=== PATIENT | female | born 1960 ===

== ENCOUNTER 2017-10-04 18:40 | Observation (INO) | payer MEDICAID ==
[2017-10-04 18:48] VITALS: BMI 31.7
[2017-10-04] MEDS ORDERED: Sodium Chloride 0.9% 1,000 ML IV STA (18:59)
--- NOTE | 2017-10-04 19:02 | ED PDOC ---
Arrival/HPI - General Chief Complaint: GI Problem Time Seen by Provider: 10/04/17 18:50 Historian: Patient, Family - History of Present Illness Narrative History of Present Illness (Text): 10/04/17 18:55 56 year old female, whose PMH includes kidney stones, who presents to the emergency department, accompanied by family complaining of right flank pain s/p surgery. patient's family states today she went in for kidney stone removal today. Patient is complaining of food intolerance and vomiting. Family member reports s yncopal episode x 5 min today. no other complaints were made. 10/04/17 22:33 Time/Duration: Prior to Arrival Symptom Onset: Sudden Symptom Course: Unchanged Activities at Onset: Rest Context: Home Past Medical History - Provider Review Nursing Documentation Reviewed: Yes - Infectious Disease Hx of Infectious Diseases: None - Tetanus Immunization Tetanus Immunization: Up to Date - Cardiac Hx Cardiac Disorders: No - Pulmonary Hx Respiratory Disorders: No - Neurological Hx Neurological Disorder: No - HEENT Hx HEENT Disorder: No - Renal Hx Kidney Stones: Yes - Endocrine/Metabolic Hx Endocrine Disorders: No - Hematological/Oncological Hx Blood Disorders: No - Integumentary Hx Dermatological Disorder: No - Musculoskeletal/Rheumatological Hx Musculoskeletal Disorders: No - Gastrointestinal Hx Gastrointestinal Disorders: Yes Hx Gastritis: Yes Hx Pancreatitis: Yes - Genitourinary/Gynecological Hx Genitourinary Disorders: No - Psychiatric Hx Psychophysiologic Disorder: No Hx Substance Use: No - Surgical History Hx Appendectomy: Yes Hx Section: Yes Hx Cholecystectomy: Yes Other/Comment: kindey stones - Anesthesia Hx Anesthesia: Yes Hx Anesthesia Reactions: No Hx Malignant Hyperthermia: No - Suicidal Assessment Feels Threatened In Home Enviroment: No Family/Social History - Physician Review Nursing Documentation Reviewed: Yes Family/Social History: Unknown Family HX Smoking Status: Never Smoked Hx Alcohol Use: No Hx Substance Use: No Allergies/Home Meds Allergies/Adverse Reactions: Allergies No Known Allergies Allergy (Verified 04/28/16 08:12) Home Medications: Home Meds Medication Instructions Recorded Confirmed Aspirin [Adult Low Dose Aspirin EC] 81 mg PO DAILY 10/04/17 10/04/17 Calcium Carbonate/Vitamin D3 1 each PO DAILY 10/04/17 10/04/17 [Caltrate 600 + D Tablet] Esomeprazole Magnesium [Nexium 20 mg PO DAILY 10/04/17 10/04/17 24Hr] Oxybutynin Chloride [Ditropan Xl] 5 mg PO DAILY 10/04/17 10/04/17 Review of Systems - Review of Systems Constitutional: absent: Fevers Respiratory: absent: SOB Cardiovascular: absent: Chest Pain Gastrointestinal: Nausea, Vomiting, Food Intolerance Musculoskeletal: Other (right flank pain s/p surgery ) Neurological: absent: Headache Endocrine: absent: Diaphoresis Physical Exam Vital Signs Reviewed: Yes Vital Signs Temp Pulse Resp BP Pulse Ox 10/04/17 22:22 65 18 168/85 H 97 10/04/17 18:55 98.6 F 66 19 188/92 H 99 Temperature: Afebrile Blood Pressure: Hypertensive Pulse: Regular Respiratory Rate: Normal Appearance: Positive for: Well-Appearing, Non-Toxic, Comfortable Pain Distress: None Mental Status: Positive for: Alert and Oriented X 3 - Systems Exam Head: Present: Atraumatic, Normocephalic Pupils: Present: PERRL Extroacular Muscles: Present: EOMI Conjunctiva: Present: Normal Respiratory/Chest: Present: Clear to Auscultation, Good Air Exchange. No: Respiratory Distress, Accessory Muscle Use, Wheezes, Decreased Breath Sounds, Rales, Rhonchi Cardiovascular: Present: Regular Rate and Rhythm, Normal S1, S2. No: Murmurs Abdomen: Present: Tenderness (right sided radiates to back ), Normal Bowel Sounds. No: Distention, Peritoneal Signs, Rebound, Guarding Neurological: Present: GCS=15, CN II-XII Intact, Speech Normal Skin: Present: Warm, Dry, Normal Color. No: Rashes Psychiatric: Present: Alert, Oriented x 3, Normal Insight, Normal Concentration Medical Decision Making ED Course and Treatment: 10/04/17 Impression: 56 year old female with right sided flank tenderness complaining of right sided flank pain s/p surgery today. also syncope susepct vasovagl Plan: -- CT abdomen and pelvis -- CT head -- EKG -- Chest X-ray -- Labs -- Zofran and Sodium Chloride -- Urinalysis -- Reassess and disposition Progress Notes: 10/04/17 21:15 CT abdomen and pelvis: FINDINGS: Lung bases: Bilateral lung base dependent atelectasis. ABDOMEN: Liver: 15 mm cyst in left lobe of liver. Gallbladder and bile ducts: Unremarkable. No calcified stones. No ductal dilation. Pancreas: Unremarkable. No ductal dilation. Spleen: Unremarkable. No splenomegaly. Adrenals: Unremarkable. No mass. Kidneys and ureters: Mild right hydronephrosis and hydroureter with stone seen at distal right ureter at the right UV junction measuring 3 mm. 2 mm nonobstructing stones are seen in distal right ureter on axial image 75. Right perinephric stranding of fat. No perinephric fluid. 3 mm nonobstructing stones in right kidney. Stomach and bowel: Unremarkable. No obstruction. No mucosal thickening. PELVIS: Appendix: No findings to suggest acute appendicitis. Bladder: Clinical cystectomy Reproductive: Unremarkable as visualized. ABDOMEN and PELVIS: Intraperitoneal space: Unremarkable. No free air. No significant fluid collection. Bones/joints: No acute fracture. No dislocation. Soft tissues: Unremarkable. Vasculature: Unremarkable. No abdominal aortic aneurysm. Lymph nodes: Unremarkable. No enlarged lymph nodes. IMPRESSION: Mild right hydronephrosis and hydroureter with stone seen at distal right ureter at the right UV junction measuring 3 mm. 2 mm nonobstructing stones are seen in distal right ureter on axial image 75. Right perinephric stranding of fat. No perinephric fluid. 3 mm nonobstructing stones in right kidney. 10/04/17 21:20 CT head: FINDINGS: Brain: No evidence of acute intracranial bleed. No mass lesion or mass effect. Lauren/white matter differentiation is unremarkable. Cerebellum is unremarkable. Cisterns are unremarkable. Brainstem is unremarkable. No suprasellar mass. Ventricles: Unremarkable. No ventriculomegaly. Bones/joints: Unremarkable. No acute fracture. Soft tissues: Unremarkable. Sinuses: Unremarkable as visualized. No acute sinusitis. Mastoid air cells: Unremarkable as visualized. No mastoid effusion. IMPRESSION: No evidence of pathology. 10/04/17 21:55 EKG: Ordered, reviewed, and independently interpreted the EKG. Rate : 69 BPM Rhythm : NSR Interpretation : No ST-segment elevations or depressions, no T-wave inversions, normal intervals. 10/05/17 11:13 multiple rounds of anitemetic. persistent nausea vomiting. will obs. accepted by dr west - Lab Interpretations Lab Results: 10/04/17 19:09 10/04/17 19:09 Lab Results 10/04/17 20:53: Urine Color Light yellow, Urine Appearance Clear, Urine pH 7.0, Ur Specific [place] 1.010, Urine Protein Negative, Urine Glucose (UA) Negative, Urine Ketones Trace H, Urine Blood Large H, Urine Nitrate Negative, Urine Bilirubin Negative, Urine Urobilinogen 0.2, Ur Leukocyte Esterase Negative, Urine RBC 0 - 2, Urine WBC Negative, Ur Epithelial Cells 0 - 2 10/04/17 19:09: Sodium 140, Potassium 3.6, Chloride 103, Carbon Dioxide 23, Anion Gap 18, BUN 13, Creatinine 0.7, Est GFR ( Amer) > 60, Est GFR (Non- Af Amer) > 60, Random Glucose 147 H, Calcium 9.4, Magnesium 1.8, Total Bilirubin 0.4, AST 33, ALT 36, Alkaline Phosphatase 93, Lactate Dehydrogenase 616, Total Creatine Kinase 168, Troponin I < 0.01, Total Protein 8.0, Albumin 4.5, Globulin 3.5, Albumin/Globulin Ratio 1.3, Lipase 135 10/04/17 19:09: PT 11.1, INR 0.97, APTT 31.1 10/04/17 19:09: WBC 13.7 H D, RBC 4.53, Hgb 13.0, Hct 38.8, MCV 85.7, MCH 28.7, MCHC 33.5, RDW 13.5, Plt Count 285, MPV 10.1, Gran % 85.6 H, Lymph % (Auto) 9.0 L, Woods % (Auto) 5.0, Eos % (Auto) 0.3 L, Baso % (Auto) 0.1, Gran # 11.74 H, Lymph # (Auto) 1.2, Woods # (Auto) 0.7 H, Eos # (Auto) 0.0, Baso # (Auto) 0.01 I have reviewed the lab results: Yes - RAD Interpretation Radiology Orders: 10/04/17 18:58 CHEST PORTABLE [RAD] Stat 10/04/17 18:59 ABD & PELVIS W/O PO OR IV CONT [CT] Stat HEAD W/O CONTRAST [CT] Stat [employer]: Radiologist - EKG Interpretation Interpreted by ED Physician: Yes Type: 12 lead EKG - Medication Orders Current Medication Orders: Heparin Sodium (Porcine) (Heparin) 5,000 units SC Q12 ELISE PRN Reason: Protocol Last Admin: 10/05/17 09:33 Dose: 5,000 units Subcutaneous Administrations Document 10/05/17 09:33 BIR (Rec: 10/05/17 09:33 [facility] [id number]) Charges for Administration # of Subcutaneous Administrations 1 Sodium Chloride (Sodium Chloride 0.9%) 1,000 mls @ 125 mls/hr IV .Q8H [facility] Last Admin: 10/05/17 09:40 Dose: 125 mls/hr eMAR Start Stop Document 10/05/17 09:40 [facility] (Rec: 10/05/17 09:40 [id number] Intravenous Solution Start Date 10/05/17 Start Time 09:40 Morphine Sulfate (Morphine) 2 mg IVP Q4 PRN PRN Reason: Pain, severe (8-10) Ondansetron HCl (Zofran Inj) 4 mg IVP Q4H PRN PRN Reason: Nausea/Vomiting Pantoprazole Sodium (Protonix Inj) 40 mg IVP DAILY [facility] Last Admin: 10/05/17 09:34 Dose: 40 mg IVP Administration Document 10/05/17 09:34 [facility] (Rec: 10/05/17 09:34 [id number] Charges for Administration # of IVP Administrations 1 Tamsulosin HCl (Flomax) 0.4 mg PO DAILY [facility] Last Admin: 10/05/17 09:32 Dose: 0.4 mg Discontinued Medications Acetaminophen (Tylenol 325mg Tab) 975 mg PO STAT STA Stop: 10/04/17 19:07 Last Admin: 10/04/17 19:12 Dose: 975 mg MAR Pain/Vitals Document 10/04/17 19:12 OCS (Rec: 10/04/17 19:13 OCS [id number]) Pain Reassessment Is This A Pain ReAssessment? No Sleep Is patient sleeping during reassessment? No Presence of Pain Presence of Pain Yes Pain Scale Used Pain Scale Used Numeric Location Pain Location Body Site Abdomen Pain Behavior Moaning Irritability Facial Grimacing Aggravating Factors ADL's Acetaminophen (Tylenol 325mg Tab) 650 mg PO STAT STA Stop: 10/04/17 23:56 Sodium Chloride (Sodium Chloride 0.9%) 1,000 mls @ 999 mls/hr IV .Q1H1M STA Stop: 10/04/17 19:59 Last Admin: 10/04/17 19:12 Dose: 999 mls/hr eMAR Start Stop Document 10/04/17 19:12 OCS (Rec: 10/04/17 19:12 OCS [id number]) Intravenous Solution Start Date 10/04/17 Start Time 19:12 End Date 10/04/17 End time 20:13 Total Infusion Time 61 Sodium Chloride (Sodium Chloride 0.9%) 1,000 mls @ 150 mls/hr IV .Q6H40M ELISE Last Admin: 10/04/17 22:09 Dose: 150 mls/hr eMAR Start Stop Document 10/04/17 22:09 OCS (Rec: 10/04/17 22:10 OCS [id number]) Intravenous Solution Start Date 10/04/17 Start Time 22:09 Ketorolac Tromethamine (Toradol) 30 mg IVP STAT STA Stop: 10/04/17 21:13 Last Admin: 10/04/17 22:08 Dose: 30 mg MAR Pain Assessment Document 10/04/17 22:08 OCS (Rec: 10/04/17 22:09 [id number] Pain Reassessment Is this a pain reassessment? No Sleep Is patient sleeping during reassessment? No Presence of Pain Presence of Pain Yes Pain Scale Used Pain Scale Used Numeric Location Pain Location Body Site Abdomen Description Description Constant Intensity of Pain at present 9 Pain Behavior Irritability IVP Administration Document 10/04/17 22:08 OCS (Rec: 10/04/17 22:09 [place] [id number]) Charges for Administration # of IVP Administrations 1 Ondansetron HCl (Zofran Inj) 4 mg IVP STAT STA Stop: 10/04/17 19:00 Last Admin: 10/04/17 19:13 Dose: 4 mg IVP Administration Document 10/04/17 19:13 OCS (Rec: 10/04/17 19:13 OCS [id number]) Charges for Administration # of IVP Administrations 1 Ondansetron HCl (Zofran Inj) 4 mg IVP STAT STA Stop: 10/04/17 21:13 Last Admin: 10/04/17 22:09 Dose: 4 mg IVP Administration Document 10/04/17 22:09 OCS (Rec: 10/04/17 22:09 [id number] Charges for Administration # of IVP Administrations 1 Pneumococcal Polyvalent Vaccine (Pneumovax 23 Vaccine) 0.5 ml IM .ONCE ONE Stop: 10/05/17 01:41 Tamsulosin HCl (Flomax) 0.4 mg PO STAT STA Stop: 10/04/17 21:35 Last Admin: 10/04/17 22:08 Dose: 0.4 mg - Scribe Statement The provider has reviewed the documentation as recorded by the Kenny Santiago Provider Scribe Attestation: All medical record entries made by the Michaeliblisa were at my direction and personally dictated by me. I have reviewed the chart and agree that the record accurately reflects my personal performance of the history, physical exam, medical decision making, and the department course for this patient. I have also personally directed, reviewed, and agree with the discharge instructions and disposition. Disposition/Present on Arrival - Present on Arrival Any Indicators Present on Arrival: No History of DVT/PE: No History of Uncontrolled Diabetes: No Urinary Catheter: No History of Decub. Ulcer: No History Surgical Site Infection Following: None - Disposition Have Diagnosis and Disposition been Completed?: Yes Diagnosis: Syncope, Kidney stone Disposition: HOSPITALIZED Disposition Time: 06:00 Condition: STABLE
[2017-10-04 19:39] LABS: BASO # 0.01 K/mm3 (0.0-2.0); BASO % 0.1 % (0.0-3.0); EOS % 0.3 % (1.5-5.0); GRAN # 11.74 (1.4-6.5); GRAN % 85.6 % (50.0-68.0); LYMPH # 1.2 (1.2-3.4); MEAN CELL VOLUME 85.7 fl (80.0-105.0); MEAN CORPUSCULAR HEMOGLOBIN 28.7 pg (25.0-35.0); MEAN CORPUSCULAR HGB CONC 33.5 g/dl (31.0-37.0); MEAN PLATELET VOLUME 10.1 fl (7.0-11.0); MONO # 0.7 (0.1-0.6); RBC 4.53 10^6/uL (3.5-6.1); RED CELL DISTRIBUTION WIDTH 13.5 % (11.5-14.5); WHITE BLOOD COUNT 13.7 10^3/ul (4.5-11.0)
[2017-10-04 19:45] LABS: INR 0.97 (0.93-1.08); PARTIAL THROMBOPLASTIN TIME 31.1 Seconds (25.1-36.5); PROTHROMBIN TIME 11.1 SECONDS (9.4-12.5)
[2017-10-04 19:51] LABS: ALB/GLOB RATIO 1.3 (1.1-1.8); ALBUMIN 4.5 g/dL (3.0-4.8); ALT/SGPT 36 U/L (7-56); AST/SGOT 33 U/L (14-36); BLOOD UREA NITROGEN 13 mg/dL (7-21); CALCIUM 9.4 mg/dL (8.4-10.5); GFR AFRICAN-AMERICAN > 60; GFR NON-AFRICAN AMERICAN > 60; LIPASE 135 U/L (23-300)
[2017-10-04 20:03] LABS: TROPONIN I < 0.01 ng/mL
[2017-10-04 21:00] LABS: URINE BILIRUBIN NEGATIVE (NEGATIVE); URINE BLOOD LARGE (NEGATIVE); URINE GLUCOSE (UA) NEGATIVE (NEGATIVE); URINE LEUKOCYTE ESTERASE NEGATIVE Leu/uL (NEGATIVE); URINE PROTEIN NEGATIVE mg/dL (<30 mg/dL); URINE UROBILINOGEN 0.2 E.U./dL (<1 E.U./dL)
[2017-10-04 21:02] LABS: URINE APPEARANCE CLEAR (CLEAR); URINE COLOR LIGHT YELLOW (YELLOW)
[2017-10-04 21:08] LABS: URINE EPITHELIAL CELLS 0 - 2 /hpf (0-5); URINE RBC 0 - 2 /hpf (0-2); URINE WBC NEGATIVE /hpf (0-6)
[2017-10-04] MEDS ORDERED: Morphine 2 mg/ml ISec IVP PRN (21:35)
[2017-10-04] MEDS ORDERED: Sodium Chloride 0.9% 1,000 ML IV SCH ×2 (21:45→23:55)
--- NOTE | 2017-10-04 21:57 | CP.PCM.HP ---
<Kwan Mahan - Last Filed: 10/05/17 08:57> History of Present Illness - History of Present Illness History of Present Illness: 56 year old female with a past medical history of nephrolithiasis s/p removal of stone who comes in today after having a witness syncopal episode after returning from her procedure. The patient was at home when she began to feel nauseous and had one episode of emesis. The patient states her syncopal episode was witnessed by her father at her home. She denies tongue biting, aura , fecal incontinenece or urinary as well. The patient reports this being her first syncopal episode. The patient denies any chest pain, palpitations, fevers , chills, changes in vision, headache, diarrhea, abdominal pain, lower leg edema or any other complaints. Past medical history: nephrolithiasis Past surgical history: Cholecystectomy, Appendectomy, Hernia repair, Family history: CAD both parents, ESRD in mother Social history: Denies tobacco, alcohol or illicit drug use. PMD: Dr. Wu Present on Admission - Present on Admission Any Indicators Present on Admission: No Review of Systems - Constitutional Constitutional: absent: Daytime Sleepiness, Headache, Night Sweats, Weakness - EENT Eyes: absent: Blurred Vision, Discharge, Loss of Peripheral Vision, Requires Corrective Lenses, Other Visual Disturbances Ears: absent: Ear Discharge, Disequilibrium, Dizziness Nose/Mouth/Throat: absent: Nasal Congestion, Nose Pain, Bleeding Gums, Mouth Pain, Facial Pain - Cardiovascular Cardiovascular: Syncope. absent: Chest Pain, Claudication, Irregular Heart Rhythm, Pain Radiating to Arm/Neck/Jaw, Leg Edema, Leg Ulcers, Orthopnea, Palpitations, Pedal Edema, Radiating Pain, Slow Heart Rate - Respiratory Respiratory: absent: Cough, Dyspnea, Hemoptysis, Snoring, Stridor, Pain on Inspiration, Change in Mucous Color - Gastrointestinal Gastrointestinal: Nausea, Vomiting. absent: Dyspepsia, Fecal Incontinence, Loose Stools - Genitourinary Genitourinary: absent: Change in Urinary Stream, Pyuria, Nocturia, Urinary Incontinence, Urinary Hesitance, Urinary Urgency - Musculoskeletal Musculoskeletal: absent: Arthralgias, Atrophy, Joint Swelling, Limited Range of Motion, Myalgias, Neck Pain, Stiffness Additional comments: CVA tenderness right side. - Integumentary Integumentary: absent: Bleeding Lesions, Changing Lesions, Lesions, New Lesions , Pruritus, Rash, Unusual Bruising - Neurological Neurological: absent: Abnormal Hearing, Behavioral Changes, Dizziness, Lack of Coordination - Endocrine Endocrine: absent: Polydipsia, Polyphagia, Polyuria - Hematologic/Lymphatic Hematologic: absent: Easy Bleeding, Easy Bruising Past Patient History - Infectious Disease Hx of Infectious Diseases: None - Tetanus Immunizations Tetanus Immunization: Up to Date - Past Medical History & Family History Past Medical History?: No - Past Social History Smoking Status: Never Smoked - CARDIAC Hx Cardiac Disorders: No - PULMONARY Hx Respiratory Disorders: No - NEUROLOGICAL Hx Neurological Disorder: No - HEENT Hx HEENT Problems: No - RENAL Hx Kidney Stones: Yes - ENDOCRINE/METABOLIC Hx Endocrine Disorders: No - HEMATOLOGICAL/ONCOLOGICAL Hx Blood Disorders: No - INTEGUMENTARY Hx Dermatological Problems: No - MUSCULOSKELETAL/RHEUMATOLOGICAL Hx Musculoskeletal Disorders: No - GASTROINTESTINAL Hx Gastrointestinal Disorders: Yes Hx Gastritis: Yes Hx Pancreatitis: Yes - GENITOURINARY/GYNECOLOGICAL Hx Genitourinary Disorders: No - PSYCHIATRIC Hx Psychophysiologic Disorder: No Hx Substance Use: No - SURGICAL HISTORY Hx Appendectomy: Yes Hx Section: Yes Hx Cholecystectomy: Yes Other/Comment: kindey stones - ANESTHESIA Hx Anesthesia: Yes Hx Anesthesia Reactions: No Hx Malignant Hyperthermia: No Meds Allergies/Adverse Reactions: Allergies Allergy/AdvReac Type Severity Reaction Status Date / Time No Known Allergies Allergy Verified 04/28/16 08:12 Physical Exam - Head Exam Head Exam: ATRAUMATIC, NORMAL INSPECTION, NORMOCEPHALIC - Eye Exam Eye Exam: Normal appearance, PERRL Pupil Exam: NORMAL ACCOMODATION, PERRL - ENT Exam ENT Exam: Mucous Membranes Moist, Normal Exam - Neck Exam Neck exam: Positive for: Normal Inspection - Respiratory Exam Respiratory Exam: Clear to Auscultation Bilateral, NORMAL BREATHING PATTERN. absent: Chest Wall Tenderness, Prolonged Expiratory Phase, Respiratory Distress - Cardiovascular Exam Cardiovascular Exam: REGULAR RHYTHM, RRR, +S1, +S2. absent: Rubs - GI/Abdominal Exam GI & Abdominal Exam: Normal Bowel Sounds, Soft. absent: Hypoactive Bowel Sounds , Organomegaly, Tenderness - Extremities Exam Extremities exam: Positive for: normal inspection. Negative for: full ROM, joint swelling, pedal edema - Back Exam Back exam: CVA tenderness (R). absent: FULL ROM, paraspinal tenderness, rash noted - Neurological Exam Neurological exam: Alert, CN II-XII Intact, Oriented x3 - Psychiatric Exam Psychiatric exam: Normal Affect, Normal Mood - Skin Skin Exam: Dry, Intact Results - Vital Signs Recent Vital Signs: Last Vital Signs Temp 98.6 F 10/04/17 18:55 Pulse 66 10/04/17 18:55 Resp 19 10/04/17 18:55 BP 188/92 H 10/04/17 18:55 Pulse Ox 99 10/04/17 18:55 - Labs Result Diagrams: 10/05/17 05:45 10/05/17 05:45 Assessment & Plan - Assessment and Plan (Free Text) Assessment: 56 year old female with a past medical history of nephrolithiasis s/p removal of stone being admitted for syncopal episode. Plan: 1. Syncopal episode. -Witnessed by father. Patient denies any incontinent episodes. -? Cardiology consult. -Last echo 01/21/15: Mild Mitral valve prolpase 2. Removal of stone in right kidney -Patient remains symptomatic with nausea and vomiting -Flomax .4mg Started. -Morphine for pain management -Zofran -Urology consulted. Help appreciated PPX -Heparin -Protonix <Kaitlynn KING,Terrence - Last Filed: 10/05/17 13:56> Results - Vital Signs Recent Vital Signs: Last Vital Signs Temp 98.3 F 10/05/17 06:00 Pulse 74 10/05/17 06:00 Resp 18 10/05/17 06:00 BP 127/67 10/05/17 06:00 Pulse Ox 96 10/05/17 06:00 - Labs Result Diagrams: 10/05/17 05:45 10/05/17 05:45 Labs: Laboratory Results - last 24 hr 10/05/17 10/05/17 05:45 05:45 WBC 13.5 H RBC 4.24 Hgb 11.9 L Hct 36.2 MCV 85.4 MCH 28.1 MCHC 32.9 RDW 13.6 Plt Count 292 MPV 10.2 Gran % 78.9 H Lymph % (Auto) 14.5 L [place]cc[place] % (Auto) 6.6 H Eos % (Auto) 0.0 L Baso % (Auto) 0.0 Gran # 10.63 H Lymph # (Auto) 2.0 [place] # (Auto) 0.9 H Eos # (Auto) 0.0 Baso # (Auto) 0.00 Sodium 143 Potassium 3.6 Chloride 108 H Carbon Dioxide 24 Anion Gap 15 BUN 7 Creatinine 0.6 L Est GFR ( Amer) > 60 Est GFR (Non-Af Amer) > 60 Random Glucose 126 H Calcium 8.6 Total Bilirubin 0.6 AST 27 ALT 35 Alkaline Phosphatase 79 Total Protein 6.9 Albumin 3.8 Globulin 3.1 Albumin/Globulin Ratio 1.2 Attending/Attestation - Attestation I have personally seen and examined this patient.: Yes I have fully participated in the care of the patient.: Yes I have reviewed all pertinent clinical information: Yes Notes (Text): -I agree with the above H&P completed by the resident physician with the following additions and/or changes: -The patient is a 56 year old woman with a history of recurrent nephrolithiasis , who just underwent lithotripsy earlier today at [facility], for a kidney stone. Soon afterwards, she had a witnessed syncopal episode. CT-A/P done in the ED shows persistence of 3mm kidney stone with associated hydro and stranding. We will consult urology. Also, orthostatics, a 2D-echo and serial trops/EKGs have been ordered. She will be placed on Flomax and aggressive IVF s.
[2017-10-05] MEDS ORDERED: Pneumococcal 23-Valent Vaccine IM ONE (01:40)
[2017-10-05 06:36] LABS: GRAN # 10.63 (1.4-6.5); GRAN % 78.9 % (50.0-68.0); HEMOGLOBIN 11.9 g/dL (12.0-16.0); LYMPH % 14.5 % (22.0-35.0); MEAN CELL VOLUME 85.4 fl (80.0-105.0); MEAN CORPUSCULAR HEMOGLOBIN 28.1 pg (25.0-35.0); MEAN CORPUSCULAR HGB CONC 32.9 g/dl (31.0-37.0); MEAN PLATELET VOLUME 10.2 fl (7.0-11.0); MONO # 0.9 (0.1-0.6); MONO % 6.6 % (1.0-6.0); RBC 4.24 10^6/uL (3.5-6.1); RED CELL DISTRIBUTION WIDTH 13.6 % (11.5-14.5); WHITE BLOOD COUNT 13.5 10^3/ul (4.5-11.0)
[2017-10-05 07:24] LABS: ALB/GLOB RATIO 1.2 (1.1-1.8); ALBUMIN 3.8 g/dL (3.0-4.8); ALT/SGPT 35 U/L (7-56); AST/SGOT 27 U/L (14-36); BLOOD UREA NITROGEN 7 mg/dL (7-21); CALCIUM 8.6 mg/dL (8.4-10.5); GFR AFRICAN-AMERICAN > 60; GFR NON-AFRICAN AMERICAN > 60
--- NOTE | 2017-10-05 07:27 | CP.PCM.PN ---
<David Hendrix - Last Filed: 10/05/17 16:36> Subjective - Date & Time of Evaluation Date of Evaluation: 10/05/17 Time of Evaluation: 07:27 - Subjective Subjective: Medicine Progress note Patient seen and examined at bedside this AM. s/p procedure of nephrolithiasis from Urology yesterday at [facility] [place]. Patients Right flank pain is much more improved than yesterday. Current has an appetite. No further syncopal epsiodes since admission. AAOx3, Denies hematuria, dizziness, loss of bowel or bladder function , fevers, chills, chest pain, shortness of breath, nausea vomiting, diarrhea Objective - Vital Signs/Intake and Output Vital Signs (last 24 hours): Temp Pulse Resp BP Pulse Ox 98.6 F 61 17 168/85 H 97 10/04/17 23:50 10/05/17 02:00 10/04/17 23:50 10/04/17 23:50 10/04/17 23:17 Intake and Output: 10/05/17 10/05/17 06:59 18:59 Intake Total 0 Balance 0 - Medications Medications: Current Medications Heparin Sodium (Porcine) (Heparin) 5,000 units SC Q12 ELISE PRN Reason: Protocol Last Admin: 10/04/17 22:09 Dose: 5,000 units Sodium Chloride (Sodium Chloride 0.9%) 1,000 mls @ 125 mls/hr IV .Q8H [facility] Morphine Sulfate (Morphine) 2 mg IVP Q4 PRN PRN Reason: Pain, severe (8-10) Ondansetron HCl (Zofran Inj) 4 mg IVP Q4H PRN PRN Reason: Nausea/Vomiting Pantoprazole Sodium (Protonix Inj) 40 mg IVP DAILY [facility] Tamsulosin HCl (Flomax) 0.4 mg PO DAILY ELISE - Labs Labs: 10/05/17 05:45 10/05/17 05:45 PT 11.1 SECONDS (9.4-12.5) 10/04/17 19:09 INR 0.97 (0.93-1.08) 10/04/17 19:09 APTT 31.1 Seconds (25.1-36.5) 10/04/17 19:09 - Constitutional Appears: Non-toxic, No Acute Distress - Head Exam Head Exam: ATRAUMATIC - Eye Exam Eye Exam: EOMI. absent: Scleral icterus Pupil Exam: PERRL - ENT Exam ENT Exam: Mucous Membranes Moist - Respiratory Exam Respiratory Exam: NORMAL BREATHING PATTERN. absent: Accessory Muscle Use, Rhonchi, Wheezes, Respiratory Distress - Cardiovascular Exam Cardiovascular Exam: +S1, +S2. absent: Bradycardia, Tachycardia - GI/Abdominal Exam GI & Abdominal Exam: Soft. absent: Distended, Firm, Guarding, Rigid, Tenderness , Rebound - Extremities Exam Extremities Exam: Normal Inspection. absent: Calf Tenderness - Neurological Exam Neurological Exam: Alert, Awake, Oriented x3 - Psychiatric Exam Psychiatric exam: Normal Affect - Skin Skin Exam: Intact, Warm Assessment and Plan - Assessment and Plan (Free Text) Assessment: 56 year old female with a past medical history of nephrolithiasis s/p removal of stone on being admitted for Vasovagal syncopal episode 2/2 extreme pain nephrolithiasis Plan: Syncopal episode. -Witnessed by father. Patient denies any incontinent episodes. -Last echo 01/21/15: Mild Mitral valve prolpase -Echo f/u final read -episode 2/2 extreme pain s/p procedure of kidney stone (Vasovagal) Removal of stone in right kidney -nausea and vomiting resolved -Flomax .4mg -Morphine for pain management - plan to de-escalate to PO pain regiment -Zofran -Urology consulted. Help appreciated -Abx -aggressive hydration PPX -Heparin -Protonix <Stephanie Adam - Last Filed: 10/06/17 14:03> Objective - Vital Signs/Intake and Output Vital Signs (last 24 hours): Temp Pulse Resp BP Pulse Ox 98.3 F 74 18 127/67 96 10/05/17 06:00 10/05/17 06:00 10/05/17 06:00 10/05/17 06:00 10/05/17 06:00 - Labs Labs: 10/05/17 05:45 10/05/17 05:45 PT 11.1 SECONDS (9.4-12.5) 10/04/17 19:09 INR 0.97 (0.93-1.08) 10/04/17 19:09 APTT 31.1 Seconds (25.1-36.5) 10/04/17 19:09 Attending/Attestation - Attestation I have personally seen and examined this patient.: Yes I have fully participated in the care of the patient.: Yes I have reviewed all pertinent clinical information, including history, physical exam and plan: Yes Notes (Text): 10/06/17 13:58 Medical record note made by the resident after discussion with my direction and input after the patient was personally seen and examined by me. I have reviewed the chart and agree that the record accurately reflects by personal performance of the history, physical exam, data review, and medical decision-making, in the course for the patient. I have also personally directed the plan of care 56 year old female with a past medical history of nephrolithiasis s/p removal of stone yesterday was admitted with syncope while she was having severe pain , etiology is Vasovagal .There is no focal deficit.Telemetery is unremarkable for any arrhythmia. Echo results were reviewed.Patient pain has improved She will be discharged home and will follow up with her PCP and her Urologist. Management plan was discussed in detail with patient with the help of beverage server. Education was provided.
[2017-10-05 08:03] VITALS: BP 127/67; PULSE 74; RESP 18; TEMP 98.3; O2SAT 96
--- NOTE | 2017-10-05 08:24 | CT ---
PROCEDURE: CT HEAD WITHOUT CONTRAST. HISTORY: syncope COMPARISON: None available. TECHNIQUE: Axial computed tomography images were obtained through the head/brain without intravenous contrast. Radiation dose: Total exam DLP = 1214 mGy-cm. This CT exam was performed using one or more of the following dose reduction techniques: Automated exposure control, adjustment of the mA and/or kV according to patient size, and/or use of iterative reconstruction technique. FINDINGS: HEMORRHAGE: No intracranial hemorrhage. BRAIN: No mass effect or edema. No atrophy or chronic microvascular ischemic changes. VENTRICLES: Unremarkable. No hydrocephalus. CALVARIUM: Unremarkable. PARANASAL SINUSES: Unremarkable as visualized. No significant inflammatory changes. MASTOID AIR CELLS: Unremarkable as visualized. No inflammatory changes. OTHER FINDINGS: None. IMPRESSION: Normal CT of the Head.
--- NOTE | 2017-10-05 08:51 | RAD ---
HISTORY: abd pain COMPARISON: 09/30/2017 FINDINGS: LUNGS: No active pulmonary disease. PLEURA: No significant pleural effusion identified, no pneumothorax apparent. CARDIOVASCULAR: Normal. OSSEOUS STRUCTURES: No significant abnormalities. VISUALIZED UPPER ABDOMEN: Normal. OTHER FINDINGS: None. IMPRESSION: No active disease.
--- NOTE | 2017-10-05 10:07 | CARD ---
APPROVED REPORT EKG Measurement Heart [id number] <Conclusion> Normal sinus rhythm Normal ECG
--- NOTE | 2017-10-05 10:16 | CT ---
PROCEDURE: CT Abdomen and Pelvis without intravenous contrast HISTORY: right flank pain ho of kidney stone COMPARISON: CT 07/28/2017 TECHNIQUE: Without contrast. Contrast dose: Radiation dose: Total exam DLP = 998 mGy-cm. This CT exam was performed using one or more of the following dose reduction techniques: Automated exposure control, adjustment of the mA and/or kV according to patient size, and/or use of iterative reconstruction technique. FINDINGS: LOWER THORAX: Unremarkable. LIVER: Unremarkable. No gross lesion or ductal dilatation. 17 mm simple cyst in the left lobe GALLBLADDER AND BILE DUCTS: Gallbladder removed PANCREAS: Unremarkable. No gross lesion or ductal dilatation. SPLEEN: Unremarkable. ADRENALS: Unremarkable. No mass. KIDNEYS AND URETERS: There is a 3 mm stone in the right UVJ near the internal orifice. This is seen on image 163 series 3. Smaller stones are seen in the right distal ureter image 148-150. Nonobstructing 3 mm stones are seen in the right kidney. There is mild right-sided hydronephrosis and perinephric stranding. VASCULATURE: Unremarkable. No aortic aneurysm. BOWEL: Unremarkable. No obstruction. No gross mural thickening. APPENDIX: Unremarkable. Normal appendix. PERITONEUM: Unremarkable. No free fluid. No free air. LYMPH NODES: Unremarkable. No enlarged lymph nodes. BLADDER: Unremarkable. REPRODUCTIVE: Unremarkable. BONES: No acute fracture. OTHER FINDINGS: The report concurs with the preliminary [facility] report IMPRESSION: 3 mm obstructing stone in the right UVJ. Smaller 2 mm stones in the distal ureter. There is mild hydronephrosis and perinephric stranding.
--- NOTE | 2017-10-05 15:44 | CP.PCM.DIS ---
<David Hendrix - Last Filed: 10/05/17 16:36> Provider - Provider Date of Admission: 10/04/17 21:16 Attending physician: Stephanie Adam MD Primary care physician: Joyce Wu DO Time Spent in preparation of Discharge (in minutes): 45 Hospital Course - Lab Results Lab Results: Most Recent Lab Values WBC 13.5 10^3/ul (4.5-11.0) H 10/05/17 05:45 RBC 4.24 10^6/uL (3.5-6.1) 10/05/17 05:45 Hgb 11.9 g/dL (12.0-16.0) L 10/05/17 05:45 Hct 36.2 % (36.0-48.0) 10/05/17 05:45 MCV 85.4 fl (80.0-105.0) 10/05/17 05:45 MCH 28.1 pg (25.0-35.0) 10/05/17 05:45 MCHC 32.9 g/dl (31.0-37.0) 10/05/17 05:45 RDW 13.6 % (11.5-14.5) 10/05/17 05:45 Plt Count 292 10^3/uL (120.0-450.0) 10/05/17 05:45 MPV 10.2 fl (7.0-11.0) 10/05/17 05:45 Gran % 78.9 % (50.0-68.0) H 10/05/17 05:45 Lymph % (Auto) 14.5 % (22.0-35.0) L 10/05/17 05:45 [place] % (Auto) 6.6 % (1.0-6.0) H 10/05/17 05:45 Eos % (Auto) 0.0 % (1.5-5.0) L 10/05/17 05:45 Baso % (Auto) 0.0 % (0.0-3.0) 10/05/17 05:45 Gran # 10.63 (1.4-6.5) H 10/05/17 05:45 Lymph # (Auto) 2.0 (1.2-3.4) 10/05/17 05:45 [place] # (Auto) 0.9 (0.1-0.6) H 10/05/17 05:45 Eos # (Auto) 0.0 (0.0-0.7) 10/05/17 05:45 Baso # (Auto) 0.00 K/mm3 (0.0-2.0) 10/05/17 05:45 PT 11.1 SECONDS (9.4-12.5) 10/04/17 19:09 INR 0.97 (0.93-1.08) 10/04/17 19:09 APTT 31.1 Seconds (25.1-36.5) 10/04/17 19:09 Sodium 143 mmol/L (132-148) 10/05/17 05:45 Potassium 3.6 mmol/L (3.6-5.0) 10/05/17 05:45 Chloride 108 mmol/L (98-107) H 10/05/17 05:45 Carbon Dioxide 24 mmol/L (21-33) 10/05/17 05:45 Anion Gap 15 (10-20) 10/05/17 05:45 BUN 7 mg/dL (7-21) 10/05/17 05:45 Creatinine 0.6 mg/dl (0.7-1.2) L 10/05/17 05:45 Est GFR ( Amer) > 60 10/05/17 05:45 Est GFR (Non-Af Amer) > 60 10/05/17 05:45 Random Glucose 126 mg/dL (70-110) H 10/05/17 05:45 Calcium 8.6 mg/dL (8.4-10.5) 10/05/17 05:45 Magnesium 1.8 mg/dL (1.7-2.2) 10/04/17 19:09 Total Bilirubin 0.6 mg/dL (0.2-1.3) 10/05/17 05:45 AST 27 U/L (14-36) 10/05/17 05:45 ALT 35 U/L (7-56) 10/05/17 05:45 Alkaline Phosphatase 79 U/L (38-126) 10/05/17 05:45 Lactate Dehydrogenase 616 U/L (333-699) 10/04/17 19:09 Total Creatine Kinase 168 U/L (35-230) 10/04/17 19:09 Troponin I < 0.01 ng/mL 10/04/17 19:09 Total Protein 6.9 g/dL (5.8-8.3) 10/05/17 05:45 Albumin 3.8 g/dL (3.0-4.8) 10/05/17 05:45 Globulin 3.1 gm/dL 10/05/17 05:45 Albumin/Globulin Ratio 1.2 (1.1-1.8) 10/05/17 05:45 Lipase 135 U/L (23-300) 10/04/17 19:09 Urine Color Light yellow (YELLOW) 10/04/17 20:53 Urine Appearance Clear (CLEAR) 10/04/17 20:53 Urine pH 7.0 (4.7-8.0) 10/04/17 20:53 Ur Specific [place] 1.010 (1.005-1.035) 10/04/17 20:53 Urine Protein Negative mg/dL (<30 mg/dL) 10/04/17 20:53 Urine Glucose (UA) Negative mg/dL (NEGATIVE) 10/04/17 20:53 Urine Ketones Trace mg/dL (NEGATIVE) H 10/04/17 20:53 Urine Blood Large (NEGATIVE) H 10/04/17 20:53 Urine Nitrate Negative (NEGATIVE) 10/04/17 20:53 Urine Bilirubin Negative (NEGATIVE) 10/04/17 20:53 Urine Urobilinogen 0.2 E.U./dL (<1 E.U./dL) 10/04/17 20:53 Ur Leukocyte Esterase Negative Negar/uL (NEGATIVE) 10/04/17 20:53 Urine RBC 0 - 2 /hpf (0-2) 10/04/17 20:53 Urine WBC Negative /hpf (0-6) 10/04/17 20:53 Ur Epithelial Cells 0 - 2 /hpf (0-5) 10/04/17 20:53 - Hospital Course Hospital Course: 56 year old female with a past medical history of nephrolithiasis s/p removal of stone at [facility] yesterday; who was admitted for vasovagal syncopal episode experienced for the first time. Patient was sitting on the chair when experienced extreme pain and passed out for a few minutes. She denies tongue biting, aura, fecal incontinence or urinary as well. The patient denies any chest pain, palpitations, fevers, chills, changes in vision, headache , diarrhea, abdominal pain, lower leg edema or any other complaints. During the hospital course patient started to receive fluids and pain control. Echo was conducted wish showed a normal ejection fraction. Since that time patient has been able to tolerated a regular diet with no further symptoms. Patient is cleared to be discharged home on antibiotics, and recommendations to keep hydrated. Follow up in one week with Urologist. Discharge Exam - Head Exam Head Exam: ATRAUMATIC - Eye Exam Eye Exam: EOMI. absent: Scleral icterus - ENT Exam ENT Exam: Mucous Membranes Moist. absent: Mucous Membranes Dry - Respiratory Exam Respiratory Exam: NORMAL BREATHING PATTERN. absent: Accessory Muscle Use, Respiratory Distress - Cardiovascular Exam Cardiovascular Exam: +S1, +S2. absent: Bradycardia, Tachycardia - GI/Abdominal Exam GI & Abdominal Exam: Soft. absent: Distended, Firm, Guarding, Hernia, Tenderness - Extremities Exam Extremities exam: normal inspection - Back Exam Back exam: CVA tenderness (R) - Neurological Exam Neurological exam: Alert, Oriented x3 - Psychiatric Exam Psychiatric exam: Normal Affect - Skin Skin Exam: Dry, Warm Discharge Plan - Discharge Medications Prescriptions: Ciprofloxacin [Cipro] 500 mg PO Q12 5 Days tab Polyethylene Glycol 3350 [Miralax] 17 ml PO DAILY 7 Days ml Tamsulosin [Flomax] 0.4 mg PO DAILY 5 Days cap - Follow Up Plan Condition: STABLE Disposition: HOME/ ROUTINE Instructions: Flank Pain (DC), Syncope (DC) Additional Instructions: Take Oral antibiotics, and pain control medication. Follow up in 1 week with your urologist. Blood in urine and burning sensation is to be expected for the next few days. Referrals: Sky Bronson MD [Medical Doctor] - Joyce Wu DO [Primary Care Provider] - <Stephanie Adam - Last Filed: 10/06/17 14:04> Provider - Provider Date of Admission: 10/04/17 21:16 Attending physician: Stephanie Adam MD Primary care physician: Joyce Wu DO Hospital Course - Lab Results Lab Results: Most Recent Lab Values WBC 13.5 10^3/ul (4.5-11.0) H 10/05/17 05:45 RBC 4.24 10^6/uL (3.5-6.1) 10/05/17 05:45 Hgb 11.9 g/dL (12.0-16.0) L 10/05/17 05:45 Hct 36.2 % (36.0-48.0) 10/05/17 05:45 MCV 85.4 fl (80.0-105.0) 10/05/17 05:45 MCH 28.1 pg (25.0-35.0) 10/05/17 05:45 MCHC 32.9 g/dl (31.0-37.0) 10/05/17 05:45 RDW 13.6 % (11.5-14.5) 10/05/17 05:45 Plt Count 292 10^3/uL (120.0-450.0) 10/05/17 05:45 MPV 10.2 fl (7.0-11.0) 10/05/17 05:45 Gran % 78.9 % (50.0-68.0) H 10/05/17 05:45 Lymph % (Auto) 14.5 % (22.0-35.0) L 10/05/17 05:45 [place] % (Auto) 6.6 % (1.0-6.0) H 10/05/17 05:45 Eos % (Auto) 0.0 % (1.5-5.0) L 10/05/17 05:45 Baso % (Auto) 0.0 % (0.0-3.0) 10/05/17 05:45 Gran # 10.63 (1.4-6.5) H 10/05/17 05:45 Lymph # (Auto) 2.0 (1.2-3.4) 10/05/17 05:45 [place] # (Auto) 0.9 (0.1-0.6) H 10/05/17 05:45 Eos # (Auto) 0.0 (0.0-0.7) 10/05/17 05:45 Baso # (Auto) 0.00 K/mm3 (0.0-2.0) 10/05/17 05:45 PT 11.1 SECONDS (9.4-12.5) 10/04/17 19:09 INR 0.97 (0.93-1.08) 10/04/17 19:09 APTT 31.1 Seconds (25.1-36.5) 10/04/17 19:09 Sodium 143 mmol/L (132-148) 10/05/17 05:45 Potassium 3.6 mmol/L (3.6-5.0) 10/05/17 05:45 Chloride 108 mmol/L (98-107) H 10/05/17 05:45 Carbon Dioxide 24 mmol/L (21-33) 10/05/17 05:45 Anion Gap 15 (10-20) 10/05/17 05:45 BUN 7 mg/dL (7-21) 10/05/17 05:45 Creatinine 0.6 mg/dl (0.7-1.2) L 10/05/17 05:45 Est GFR ( Amer) > 60 10/05/17 05:45 Est GFR (Non-Af Amer) > 60 10/05/17 05:45 Random Glucose 126 mg/dL (70-110) H 10/05/17 05:45 Calcium 8.6 mg/dL (8.4-10.5) 10/05/17 05:45 Magnesium 1.8 mg/dL (1.7-2.2) 10/04/17 19:09 Total Bilirubin 0.6 mg/dL (0.2-1.3) 10/05/17 05:45 AST 27 U/L (14-36) 10/05/17 05:45 ALT 35 U/L (7-56) 10/05/17 05:45 Alkaline Phosphatase 79 U/L (38-126) 10/05/17 05:45 Lactate Dehydrogenase 616 U/L (333-699) 10/04/17 19:09 Total Creatine Kinase 168 U/L (35-230) 10/04/17 19:09 Troponin I < 0.01 ng/mL 10/04/17 19:09 Total Protein 6.9 g/dL (5.8-8.3) 10/05/17 05:45 Albumin 3.8 g/dL (3.0-4.8) 10/05/17 05:45 Globulin 3.1 gm/dL 10/05/17 05:45 Albumin/Globulin Ratio 1.2 (1.1-1.8) 10/05/17 05:45 Lipase 135 U/L (23-300) 10/04/17 19:09 Urine Color Light yellow (YELLOW) 10/04/17 20:53 Urine Appearance Clear (CLEAR) 10/04/17 20:53 Urine pH 7.0 (4.7-8.0) 10/04/17 20:53 Ur Specific [place] 1.010 (1.005-1.035) 10/04/17 20:53 Urine Protein Negative mg/dL (<30 mg/dL) 10/04/17 20:53 Urine Glucose (UA) Negative mg/dL (NEGATIVE) 10/04/17 20:53 Urine Ketones Trace mg/dL (NEGATIVE) H 10/04/17 20:53 Urine Blood Large (NEGATIVE) H 10/04/17 20:53 Urine Nitrate Negative (NEGATIVE) 10/04/17 20:53 Urine Bilirubin Negative (NEGATIVE) 10/04/17 20:53 Urine Urobilinogen 0.2 E.U./dL (<1 E.U./dL) 10/04/17 20:53 Ur Leukocyte Esterase Negative Negar/uL (NEGATIVE) 10/04/17 20:53 Urine RBC 0 - 2 /hpf (0-2) 10/04/17 20:53 Urine WBC Negative /hpf (0-6) 10/04/17 20:53 Ur Epithelial Cells 0 - 2 /hpf (0-5) 10/04/17 20:53 Attending/Attestation - Attestation I have personally seen and examined this patient.: Yes I have fully participated in the care of the patient.: Yes I have reviewed all pertinent clinical information, including history, physical exam and plan: Yes Notes (Text): 10/06/17 14:04 Medical record note made by the resident after discussion with my direction and input after the patient was personally seen and examined by me. I have reviewed the chart and agree that the record accurately reflects by personal performance of the history, physical exam, data review, and medical decision-making, in the course for the patient. I have also personally directed the plan of care 56 year old female with a past medical history of nephrolithiasis s/p removal of stone yesterday was admitted with syncope while she was having severe pain , etiology is Vaso vagal .There is no focal deficit.Telemetery is unremarkable for any arrhythmia. Echo results were reviewed.Patient pain has improved She will be discharged home and will follow up with her PCP and her Urologist. Management plan was discussed in detail with patient with the help of round up ring hand. Education was provided.
--- NOTE | 2017-10-06 09:06 | CARD ---
APPROVED REPORT EXAM: Two-dimensional and M-mode echocardiogram with Doppler and color Doppler. INDICATION 2D DIMENSIONS Left Atrium (2D)3.5 (1.6-4.0cm)IVSd0.9 (0.7-1.1cm) LVDd4.2 (3.9-5.9cm)PWd1.0 (0.7-1.1cm) LVDs2.9 (2.5-4.0cm)FS (%) 30.9 % LVEF (%)59.0 (>50%) M-Mode DIMENSIONS Aortic Root2.80 (2.2-3.7cm)Aortic Cusp Exc.2.00 (1.5-2.0cm) Aortic Valve AoV Peak Uvpzsvvv911.0cm/Logan Peak GR.11mmHg Mitral Valve MV E Qljzupui53.3cm/sMV A Nwesqcxo03.6cm/sE/A ratio1.4 TDI Lateral E' Peak V11.30cm/sMedial E' Peak V8.68cm/sE/Lateral E'8.3 E/Medial E'10.9 Tricuspid Valve TR Peak [id number]/sRAP [id number] Peak Gr.29mmHg [id number] LEFT VENTRICLE The left ventricle is normal size. There is normal left ventricular wall thickness. The left ventricular function is normal.EF-60-65% There is normal LV segmental wall motion. The left ventricular diastolic function is normal. No left ventricle thrombus noted on this study. There is no ventricular septal defect visualized. There is no left ventricular aneurysm. There is no mass noted in the left ventricle. RIGHT VENTRICLE The right ventricle is normal size. There is normal right ventricular wall thickness. The right ventricular systolic function is normal. ATRIA The left atrium size is normal. The right atrium size is normal. The atrial septum is aneurysmal. AORTIC VALVE The aortic valve is thickened but opens well. No aortic regurgitation is present. There is no aortic valvular stenosis. There is no aortic valvular vegetation. MITRAL VALVE The mitral valve is thickened but opens well. Mitral regurgitation is trace. There is no mitral valve stenosis. There is no evidence of mitral valve prolapse. TRICUSPID VALVE The tricuspid valve leaflets are thickened , but open well. There is mild tricuspid regurgitation.RVSP-39 mm of Hg There is no tricuspid valve stenosis. There is no tricuspid valve prolapse or vegetation. PULMONIC VALVE The pulmonary valve is normal in structure. There is no pulmonic valvular regurgitation. There is no pulmonic valvular stenosis. GREAT VESSELS The aortic root is normal in size. The ascending aorta is normal in size. The pulmonary artery is normal. The IVC is normal in size and collapses >50% with inspiration. PERICARDIAL EFFUSION There is no pleural effusion. There is no pericardial effusion. <Conclusion> The left ventricular function is normal.EF-60-65%. Trace MR Mild TR, RVSP-39 mm of Hg. The atrial septum is aneurysmal. no vegetation or thrombus noted.
== END 2017-10-05 18:33 | disposition home or self-care (01) ==
LOC: ED 18:40 → ERH 21:16 → 3RNO 23:19
PROVIDERS: ADMIT Internal Medicine; ATTEND Internal Medicine
DX: R55 Syncope and collapse (principal); Z87.442 Personal history of urinary calculi; Z79.82 Long term (current) use of aspirin
CPT/HCPCS: 36415; 70450; 71045; 74176; 80053; 81001; 82550; 83615; 83690; 83735; 84484; 85025; 85610; 85730; 93005; 93306; 96361; 96372; 96374; 96375; 96376; 99285; C9113; G0378; J1644; J1885; J2405; J7030

== ENCOUNTER 2018-07-06 10:13 | Outpatient (CLI) | payer MEDICAID | END 2018-07-06 10:14 | disposition home or self-care (01) | LOC: RAD 10:13 ==